=== PATIENT | female | born 1970 ===

== ENCOUNTER 2022-11-19 07:09 | Day surgery (SDC) | payer OTHER ==
[~2022-11-19] VITALS: Ht 160 cm; Wt 72.6 kg
[2022-11-19] MEDS ORDERED: OXYC1TAB9 PO (11:51)
== END 2022-11-19 16:45 | disposition home or self-care (01) ==
LOC: CIR.AMB 07:09
PROVIDERS: ATTEND Surgery
DX: K64.2 Third degree hemorrhoids (principal); K64.4 Residual hemorrhoidal skin tags; K64.8 Other hemorrhoids; K62.89 Other specified diseases of anus and rectum; K62.5 Hemorrhage of anus and rectum; K59.09 Other constipation; I10 Essential (primary) hypertension; Z20.822 Contact with and (suspected) exposure to COVID-19; K60.2 Anal fissure, unspecified